=== PATIENT | female | born 1950 | race Caucasian/White ===

== ENCOUNTER 2018-11-07 05:40 | Day surgery (SDC) | payer MEDICARE, BC ==
[2018-11-06 14:09] LABS: HEMATOCRIT 37.7 % (36.0-48.0); HEMOGLOBIN 12.9 g/dL (12-16); MCH 29.6 pg (26.0-34.0); MCHC 34.2 g/dL (31.0-37.0); MCV 86.5 fL (80.0-100.0); MEAN PLATELET VOLUME 8.6 fL (7.4-10.4); RBC 4.36 10x6/uL (4.00-5.40); RDW 12.5 % (11.5-14.5); WBC 9.2 10x3/uL (4.8-10.8)
[~2018-11-07] VITALS: Ht 162.6 cm; Wt 71.7 kg
[~2018-11-07 05:40] MED LIST: TOPROL XL50 MG PO
[2018-11-07 06:39] VITALS: BP 155/72; Ht 162.6 cm; Wt 71.7 kg
[2018-11-07] MEDS ORDERED: DILAUDID2 MG PO (08:48)
--- NOTE | 2018-11-07 13:26 | OP ---
PATIENT NAME: RACH ENG MEDICAL RECORD: [id number] :48 LOCATION:[facility] ADMISSION DATE: SURGEON: ANDREWS DICKINSON MD DATE OF OPERATION: 11/07/2018 PREOPERATIVE DIAGNOSES: 1. Impingement syndrome of the right shoulder with biceps tendinitis. 2. Right carpal tunnel syndrome. POSTOPERATIVE DIAGNOSES: 1. Impingement syndrome of the right shoulder with biceps tendinitis. 2. Right carpal tunnel syndrome. PROCEDURES: 1. Right shoulder arthroscopy with arthroscopic biceps tenotomy. 2. Arthroscopic distal clavicle excision done through separate incision - 1 cm. 3. Arthroscopic subacromial decompression with acromioplasty and bursectomy. 4. Right carpal tunnel release. SURGEON: Andrews Dickinson MD HERBICIDE SPRAYER: DIANELYS Garcia INTRAOPERATIVE COMPLICATIONS: None. SUMMARY OF PATHOLOGIC FINDINGS: The patient did indeed have severe impingement syndrome and the rotator cuff was attenuated; however, no full thickness tearing was noted. The biceps tendon was extremely inflamed and beefy red in both the articular aspect as well as into the bicipital groove. The patient did have a downward sloping acromion with excoriation of the coracoacromial ligament as well as acromioclavicular arthritis. Lastly, the patient had a very tight transverse carpal ligament consistent with the preoperative diagnosis of carpal tunnel syndrome. OPERATIVE SUMMARY IN DETAIL: After obtaining the appropriate preoperative orthopedic surgery consent as well as anesthetic consultation, evaluation and clearance, the patient was brought to the operating room and placed on operating table in supine position. After general laryngeal mask airway was administered, the patient was placed in a left lateral decubitus position. All pressure points were well padded to include down leg peroneal pad as well as axillary roll. The patient was held firmly to the operating table using the vacuum pack suction system. Right upper extremity and shoulder were then prepped and draped in a routine sterile fashion. The arm was held in the Arthrex traction boom at 30 degrees of forward flexion, 30 degrees of abduction with 10 pounds of traction laterally. Arthroscopy was established in the glenohumeral joint from a posterior portal. Anterior portal was established in the anterior safe interval under direct arthroscopic visualization. Diagnostic arthroscopy revealed the above finding. Mild labral fraying was noted. Mild undersurface rotator cuff tear free was noted, but no full thickness tear was seen on the articular aspect. Biceps tendon was found as described above. The [place] tissue ablation system was utilized to complete the biceps tenotomy at the bicipital labral junction. Having completed this, arthroscopy was established in the subacromial space. Accessory lateral portal was created through which the [place] tissue ablation system was utilized to denude the undersurface of the acromion of all soft tissue elements and release the coracoacromial ligament. OPERATIVE REPORT [id number] RACH ENG Having completed that, a 5-0 barrel bur was used to perform acromioplasty at the level of acromioclavicular joint, then through a separate portal under direct arthroscopic visualization, distal clavicle was excised for 1 cm. Again, the rotator cuff had some attritional changes and the rest of the patient's bursa was debrided completing the bursectomy. Having completed this, arthroscopy portion was terminated. Arthroscopic portals were closed in routine interrupted fashion using 4-0 Prolene done by Martir Hall. Attention was then turned to the patient's right hand. An Esmarch bandage was used as a tourniquet. The Esmarch was placed for exsanguination and clipped and held. The hand was approached. An incision was made in line with the fourth metacarpal ray taken down the level of transverse carpal ligament distally. This was identified and a small incision was made here. [place] elevator was then placed over the median nerve to protect it to the residual of the case. At this point, the Leonel light knife was then utilized to complete the incision of the entire transverse carpal ligament to the proximal wrist crease, all done under direct visualization. Having completed this, the wound was irrigated and closed with 4-0 Prolene in a routine interrupted fashion, again done by Martir Hall. The area was locally anesthetized with 0.25% Marcaine plain. Sterile dressings were placed on both the hand as well as the shoulder. The patient was then awakened and taken to the recovery room in stable condition. All final needle and sponge counts were correct. TRANSINT:[id number] Voice Confirmation ID: [id number] DOCUMENT ID: [id number] ALOK GUTIÉRREZ, ANDREWS SAWYER at 1326 CC: [id number] DICTATION DATE: 11/07/18 0853 QUALITY ENG: 11/07/18 1133 [facility] [address] [facility] [place] [address]
== END 2018-11-07 11:05 | disposition home or self-care (01) ==
LOC: D.OPS 05:40 → D.PAN 08:15 → D.OPS 08:20 → D.PAN 08:20 → D.OPS 09:30 → D.PAN 09:30 → D.OPS 11:05
PROVIDERS: Anesthesiology; ATTEND Orthopaedic Surgery
DX: M75.41 Impingement syndrome of right shoulder (principal); M75.21 Bicipital tendinitis, right shoulder; G56.01 Carpal tunnel syndrome, right upper limb

== ENCOUNTER 2019-07-24 06:50 | Day surgery (SDC) | payer MEDICARE, BC ==
[2019-07-23 13:04] LABS: HEMOGLOBIN 12.6 g/dL (12-16); MCH 30.4 pg (26.0-34.0); MCHC 33.2 g/dL (31.0-37.0); MCV 91.8 fL (80.0-100.0); MEAN PLATELET VOLUME 8.9 fL (7.4-10.4); RBC 4.14 10x6/uL (4.00-5.40); RDW 12.6 % (11.5-14.5); WBC 6.2 10x3/uL (4.8-10.8)
[~2019-07-24] VITALS: Ht 162.6 cm; Wt 70.3 kg
--- NOTE | ~2019-07-24 | OP ---
PATIENT NAME: RACH ENG MEDICAL RECORD: [id number] :48 LOCATION:[facility] ADMISSION DATE: SURGEON: ANDREWS DICKINSON MD DATE OF OPERATION: 07/24/2019 PREOPERATIVE DIAGNOSIS: Carpal tunnel syndrome of the left wrist. POSTOPERATIVE DIAGNOSIS: Carpal tunnel syndrome of the left wrist. PROCEDURE: Left carpal tunnel release. SURGEON: Andrews Dickinson MD ANESTHESIA: General. INTRAOPERATIVE COMPLICATIONS: None. SUMMARY OF PATHOLOGIC FINDINGS: The patient had a very thickened transverse carpal ligament consistent with preoperative diagnosis. OPERATIVE SUMMARY IN DETAIL: After obtaining the appropriate preoperative orthopedic surgery consent as well as anesthetic consultation, evaluation, and clearance, the patient was brought to the operating room and placed on the operating table in a supine position. After adequate general laryngeal mask airway was administered, tourniquet was placed on the proximal aspect of left upper extremity. Left upper extremity was prepped and draped in sterile fashion. The arm was elevated and exsanguinated, tourniquet inflated to 250 mmHg. Appropriate timeout was taken and agreed upon by all given the appropriate patient unique identifiers. At this point, a mid palmar incision was created along the fourth metacarpal ray taken down to the level of the transverse carpal ligament was identified, slightly incised for identification of the median nerve. Then, under direct visualization with protection of the median nerve with a [place] elevator, the transverse carpal ligament was incised in its entirety to the proximal wrist crease under direct visualization. Having completed this, wound was irrigated and closed by DIANELYS Burton using 4-0 Prolene. The area was locally infiltrated with 0.25% Marcaine plain. Sterile dressings were applied. Tourniquet was deflated. The patient was awakened and taken to recovery room in stable condition. All final needle and sponge counts were correct. TRANSINT:[id number] Voice Confirmation ID: [id number] DOCUMENT ID: [id number] ALOK GUTIÉRREZ, ANDREWS SAWYER CC: [id number] DICTATION DATE: 08/01/19 1317 CHAPTER RELATIONS ADMINISTRATOR: 08/01/19 1431 [facility] 07/24/19 [place] [address]
[~2019-07-24 06:50] MED LIST changes: +DILAUDID2 MG PO
[2019-07-24 07:48] VITALS: BP 111/67; Ht 162.6 cm; Wt 70.3 kg
[2019-07-24] MEDS ORDERED: DILAUDID2 MG PO (10:13)
--- NOTE | 2019-07-24 12:19 | NUR ---
1158 IV DC'D. CATHETER TIP INTACT. NO BLEEDING AT SITE. BANDAID APPLIED. DISCHARGE INSTRUCTIONS REVIEWED WITH PT AND HER . BOTH VOICE UNDERSTANDING OF INSTRUCTIONS.
== END 2019-07-24 12:10 | disposition home or self-care (01) ==
LOC: D.OPS 06:50 → D.PAN 07:30 → D.OPS 07:30 → D.PAN 11:00 → D.OPS 11:00 → D.PAN 15:05 → D.OPS 16:15 → D.PAN 16:15
PROVIDERS: Anesthesiology; ATTEND Orthopaedic Surgery
DX: G56.02 Carpal tunnel syndrome, left upper limb (principal)